=== PATIENT | female | born 1935 | race Caucasian/White ===

== ENCOUNTER → 2016-08-04 | Outpatient (CLI) | payer MEDICARE ==
[~2016-08-04] MED LIST: ASPIRIN ADULT L81 M1 PO; CIPRO500 MG PO; DIOVAN40 MG PO; K-DUR 20MEQ20 MEQ; LIPITOR10 MG PO; METFORMIN500 MG PO; METFORMIN850 MG
== END | disposition home or self-care (01) ==
LOC: MAMMO 11:04
DX: R92.8 Other abnormal and inconclusive findings on diagnostic imaging of breast (principal); M17.11 Unilateral primary osteoarthritis, right knee; Z85.3 Personal history of malignant neoplasm of breast

== ENCOUNTER → 2017-07-23 | Outpatient (CLI) | payer MEDICARE | END | disposition home or self-care (01) | LOC: MAMMO 09:24 | DX: C50.919 Malignant neoplasm of unspecified site of unspecified female breast (principal); R92.8 Other abnormal and inconclusive findings on diagnostic imaging of breast ==

== ENCOUNTER → 2019-11-16 | Outpatient (CLI) | payer MEDICARE | END | disposition home or self-care (01) | LOC: MAMMO 08:45 | PROVIDERS: ATTEND Physician Assistant | DX: I08.0 Rheumatic disorders of both mitral and aortic valves (principal); N64.59 Other signs and symptoms in breast; I10 Essential (primary) hypertension; Z85.3 Personal history of malignant neoplasm of breast ==

== ENCOUNTER → 2020-11-14 | Outpatient (CLI) | payer MEDICARE | END | disposition home or self-care (01) | LOC: US 08:41 → MAMMO 10:00 | PROVIDERS: ATTEND Physician Assistant | DX: I65.23 Occlusion and stenosis of bilateral carotid arteries (principal); N64.59 Other signs and symptoms in breast ==

== ENCOUNTER → 2021-11-25 | Outpatient (CLI) | payer MEDICARE ==
[~2021-11-25] MED LIST changes: +ALDACTONE25 MG PO; +AMLODIPINE BESYL5 MG PO; +ATORVASTATIN CA10 M1 PO; +HYDROCHLOROTHIA25 M1 PO; +HYDROCODONE-AC1 EAC1 PO; +IRBESARTAN150 MG PO; +Lopressor25 MG PO; +METFORMIN HYDR500 MG PO; +OMNICEF300 MG PO; +SAVAYSA60 MG PO; +VITAMIN D350 MC2 PO; +XARE20MG PO
== END | disposition home or self-care (01) ==
LOC: ORTHO 05:32
PROVIDERS: ATTEND Orthopaedic Surgery
DX: S72.142A Displaced intertrochanteric fracture of left femur, initial encounter for closed fracture (principal); X58.XXXA Exposure to other specified factors, initial encounter; Y93.89 Activity, other specified; Y92.89 Other specified places as the place of occurrence of the external cause; Y99.8 Other external cause status

== ENCOUNTER → 2021-12-23 | Outpatient (CLI) | payer MEDICARE | END | disposition home or self-care (01) | LOC: ORTHO 07:12 | PROVIDERS: ATTEND Orthopaedic Surgery | DX: S72.142D Displaced intertrochanteric fracture of left femur, subsequent encounter for closed fracture with routine healing (principal); X58.XXXD Exposure to other specified factors, subsequent encounter ==

== ENCOUNTER → 2023-01-22 | Outpatient (CLI) | payer MEDICARE | END | disposition home or self-care (01) | LOC: RESCLI 01:14 | PROVIDERS: ATTEND Internal Medicine | DX: E11.9 Type 2 diabetes mellitus without complications (principal); I48.91 Unspecified atrial fibrillation; I10 Essential (primary) hypertension; N32.81 Overactive bladder; E78.00 Pure hypercholesterolemia, unspecified; Z90.49 Acquired absence of other specified parts of digestive tract; Z98.890 Other specified postprocedural states; Z79.899 Other long term (current) drug therapy ==

== ENCOUNTER 2025-01-10 11:32 | Emergency (ER) | payer MEDICARE ==
[~2025-01-10] VITALS: Wt 58.1 kg
[2025-01-10] MEDS ORDERED: FUROSEMIDE20 M1 PO (12:19)
[2025-01-10] MEDS ORDERED: LEVOFLOXACIN500 MG PO (12:19)
[2025-01-10] MEDS ORDERED: METOPROLOL TART50 M1 PO (12:21)
[2025-01-10] MEDS ORDERED: OMEPRAZOLE MAGN20 MG PO (12:21)
[2025-01-10] MEDS ORDERED: POTASSIUM CHLO10 ME5 PO (12:21)
[2025-01-10] MEDS ORDERED: SOLIFENACIN SUC10 MG PO (12:21)
[2025-01-10] MEDS ORDERED: PRESERVISION A1 EAC4 PO (12:22)
[2025-01-10 12:24] LABS: MEAN CELL VOLUME 84.4 fl (81.0-99.0); MEAN CORPUSCULAR HGB 29.0 pg (27.0-31.0); MEAN PLATELET VOLUME 9.5 fl (9.6-12.3); NUCLEATED RED BLOOD CELL 0.0 % (0.0-0.0); NUCLEATED RED BLOOD CELL 0.0 10*3/uL (0.0-0.0); PLATELET COUNT AUTOMATED 236 10*3/uL (130-400); RED CELL DISTRI WIDTH 15.9 % (0-14.5)
[2025-01-10 12:28] LABS: MANUAL DIFF REFLEX YES
[2025-01-10 12:44] LABS: PLATELET SUFFICIENCY NORMAL (NORMAL); VACUOLATION OF NEUTROPHILS SLIGHT
[2025-01-10 12:47] LABS: BUN 49.0 mg/dl (9-23)
[2025-01-10] MEDS ORDERED: HYDROmorphONE Hydrochloride 0.5 MG/0.5 ML SYRINGE IV ONE ×2 (13:40→14:40)
[2025-01-10 14:06] VITALS: BP 157/74
[2025-01-10] MEDS ORDERED: SODIUM CHLORIDE 0.9% 1,000 ML IV ONE (14:25)
== END 2025-01-10 19:30 | disposition short-term general hospital (02) ==
LOC: ED 11:32
PROVIDERS: Emergency Medicine
DX: N17.9 Acute kidney failure, unspecified (principal); N13.2 Hydronephrosis with renal and ureteral calculous obstruction; E11.9 Type 2 diabetes mellitus without complications; I10 Essential (primary) hypertension; E78.00 Pure hypercholesterolemia, unspecified; Z88.5 Allergy status to narcotic agent; Z88.8 Allergy status to other drugs, medicaments and biological substances; Z90.710 Acquired absence of both cervix and uterus; Z90.49 Acquired absence of other specified parts of digestive tract; Z98.890 Other specified postprocedural states; Z96.652 Presence of left artificial knee joint; W19.XXXA Unspecified fall, initial encounter; Y93.89 Activity, other specified; Y92.89 Other specified places as the place of occurrence of the external cause; Y99.8 Other external cause status